=== PATIENT | male | born 1980 | race Caucasian/White ===

== ENCOUNTER 2019-09-21 11:57 | Emergency (ER) | payer SELFPAY | END 2019-09-21 12:59 | disposition home or self-care (01) | LOC: ERS 11:57 | DX: S61.232A Puncture wound without foreign body of right middle finger without damage to nail, initial encounter (principal); W27.3XXA Contact with needle (sewing), initial encounter; Y93.H1 Activity, digging, shoveling and raking | CPT/HCPCS: 99281 ==

== ENCOUNTER 2021-02-08 07:42 | Emergency (ER) | payer OTHER ==
[2021-02-08] MEDS ORDERED: Ondansetron ODT 4 MG TAB ONE (07:54)
[2021-02-08] MEDS ORDERED: Ketorolac Tromethamine 30 MG/ML VIAL ONE (07:54)
[2021-02-08 15:49] LABS: SARS-CoV-2 PCR by NAA DETECTED (NotDetected)
== END 2021-02-08 10:13 | disposition home or self-care (01) ==
LOC: ERS 07:42
DX: U07.1 COVID-19 (principal)
CPT/HCPCS: 96372; 99284; J1885; Q0162; U0003; U0005

== ENCOUNTER 2022-05-08 19:44 | Emergency (ER) | payer BC, OTHER, SELFPAY ==
[~2022-05-08 19:44] MED LIST: Iopamidol 370 76% 100 ML VIAL ONE
[2022-05-08] MEDS ORDERED: Fentanyl 100 MCG/2 ML VIAL ONE (20:07)
[2022-05-08] MEDS ORDERED: Ketorolac Tromethamine 30 MG/ML VIAL ONE (21:19)
[2022-05-08] MEDS ORDERED: Promethazine HCl 12.5 MG in Sodium Chloride 0.9% 50 ML IVPB SCH (21:30)
[2022-05-08 21:45] LABS: Bacteria/HPF None Seen HPF (None Seen); Bilirubin Negative (Negative); Blood, Urine 2+ (Negative); Clarity Clear (Clear); Glucose, Urine (Dipstick) 30 mg/dL (Negative); Ketone, Urine 150 mg/dL (Negative); Leukocyte Negative Leu/uL (Negative); Nitrite Negative (Negative); Protein, Urine (Dipstick) 30 mg/dL (Neg-Trace); RBC/HPF 21-50 HPF (0-3); Specific Gravity, Urine 1.024 (1.002-1.036); Squamous Epithelial None Seen HPF (0-3); Urobilinogen Normal mg/dL (Less than 2); WBC/HPF 0-3 HPF (0-3); pH, Urine 8.5 (5.0-9.0)
[2022-05-08 22:04] LABS: #Basophils 0.1 thou/uL (0.0-0.2); #Neutrophils 10.7 thou/uL (1.40-6.50); %Basophils 0.6 % (0.0-1.0); %Eosinophils 0.3 % (0.0-10.0); %Lymphocytes 7.7 % (21.0-51.0); %Monocytes 7.8 % (0.0-10.0); %Neutrophils 83.6 % (42.0-75.0); Hemoglobin 13.6 g/dL (14.0-18.0); Mean Corpuscular Volume 94.1 fL (78.0-98.0); Platelet Count 162 thou/uL (130-400); RBC Distribution Width 11.6 % (11.5-14.5); Red Blood Cell (RBC) Count 4.24 mill/uL (4.70-6.10); White Blood Cell (WBC) Count 12.8 thou/uL (4.8-10.8)
[2022-05-08 22:25] LABS: ALT (SGPT) 14 U/L (8-55); AST (SGOT) 10 U/L (5-34); Albumin 3.7 g/dL (3.5-5.0); Alkaline Phosphatase 52 U/L (40-110); Anion Gap 15 mmol/L (10-20); BUN (Urea Nitrogen) 9 mg/dL (8.9-20.6); Bilirubin, Total 1.2 mg/dL (0.2-1.2); Calc. Creatinine Clearance 0 mL/min (70-130); Calcium 8.7 mg/dL (7.8-10.44); Carbon Dioxide 17 mmol/L (22-29); Chloride 113 mmol/L (98-107); Estimated GFR 69; Globulin 1.9 g/dL (2.4-3.5); Glucose 143 mg/dL (70-105); Lipase 13 U/L (8-78); Potassium 3.6 mmol/L (3.5-5.1); Protein, Total 5.6 g/dL (6.0-8.3); Sodium 141 mmol/L (136-145)
== END 2022-05-08 22:38 | disposition home or self-care (01) ==
LOC: ERS 19:44
DX: N20.0 Calculus of kidney (principal)
CPT/HCPCS: 36415; 74177; 76870; 80053; 81003; 81015; 83605; 83690; 85025; 93976; 96365; 96375; J1885; J2550; J3010; Q9967